=== PATIENT | female | born 1995 | race American Indian/Alaskan Native ===

== ENCOUNTER 2019-06-04 21:17 | Emergency (ER) | payer SELFPAY ==
--- NOTE | 2019-06-04 21:36 | Emergency Department Report ---
Blank Doc - Documentation Documentation: This is a 23-year-old female that presents with abdominal pain with n/v. This initial assessment/diagnostic orders/clinical plan/treatment(s) is/are subject to change based on patient's health status, clinical progression and re- assessment by fellow clinical providers in the ED. Further treatment and workup at subsequent clinical providers discretion. Patient/guardians urged not to elope from the ED as their condition may be serious if not clinically assessed and managed. Initial orders include: 1- Patient sent to [facility] for further evaluation and treatment 2- labs 3- UA
[2019-06-04 21:43] VITALS: BP 117/71
[2019-06-04 22:00] LABS: Basophils % (Auto) 0.4 % (0.0-1.8); Eosinophils # (Auto) 0.1 K/mm3 (0.0-0.4); Eosinophils % (Auto) 1.4 % (0.0-4.3); Hematocrit 36.3 % (30.3-42.9); Hemoglobin 12.5 gm/dl (10.1-14.3); Lymphocytes # (Auto) 1.9 K/mm3 (1.2-5.4); Lymphocytes % (Auto) 44.8 % (13.4-35.0); Mean Corpuscular HGB Conc 34 % (30-34); Mean Corpuscular Volume 88 fl (79-97); Monocytes # (Auto) 0.3 K/mm3 (0.0-0.8); Monocytes % (Auto) 6.4 % (0.0-7.3); Platelet Count 162 K/mm3 (140-440); Red Blood Count 4.13 M/mm3 (3.65-5.03); Red Cell Distribution Width 13.4 % (13.2-15.2)
[2019-06-04 22:21] LABS: Alanine Aminotransferase 21 units/L (7-56); Albumin 4.5 g/dL (3.9-5); BUN/Creatinine Ratio 16; Blood Urea Nitrogen 11 mg/dL (7-17); Calcium 9.3 mg/dL (8.4-10.2); Hemolysis Index 6
[2019-06-04 23:17] LABS: Bacteria,Urine 1+ /HPF (Negative); Mucus,Urine 2+ /HPF
[2019-06-05 00:26] LABS: Bilirubin,Urine NEG (Negative); Blood,Urine NEG (Negative); Color,Urine Yellow (Yellow); Protein,Urine <15 mg/dL mg/dL (Negative); Urobilinogen,Urine < 2.0 mg/dL (<2.0)
[2019-06-05] MEDS ORDERED: TORADOL IV STA (01:00)
[2019-06-05] MEDS ORDERED: REGLAN IV STA (01:00)
[2019-06-05] MEDS ORDERED: NACL 0.9% 1000 ML 1,000 ML IV ONE (01:00)
[2019-06-05] MEDS ORDERED: BENADRYL IV STA (01:00)
--- NOTE | 2019-06-05 01:13 | Emergency Department Report ---
ED Headache HPI - General Chief Complaint: Abdominal Pain Stated Complaint: ABDOMINAL PAIN MIGRAINE Time Seen by Provider: 06/04/19 21:35 Source: patient - History of Present Illness Timing/Duration: 1 week, waxing and waning Quality: moderate Head Injury Location: frontal, parietal Recent Head Trauma: occasional headaches Modifying Factors: improves with: movement Associated Symptoms: denies symptoms. denies: facial pain, fever/chills, nasal drainage, numbness in legs/feet, sinus infection, stiff neck, vision changes Allergies/Adverse Reactions: Allergies No Known Allergies Allergy (Unverified 06/04/19 21:25) Home Medications: Ambulatory Orders Butalb/Acetaminophen/Caffeine [Fioricet 50-300-40 mg CAP] 1 cap PO Q6HR PRN #20 cap 06/05/19 ED Review of Systems ROS: Stated complaint: ABDOMINAL PAIN MIGRAINE Other details as noted in HPI Comment: All other systems reviewed and negative ED Past Medical Hx - Past Medical History Previous Medical History?: Yes Additional medical history: headaches - Surgical History Past Surgical History?: Yes Additional Surgical History: - Social History Smoking Status: Current Some Day Smoker Substance Use Type: None - Medications Home Medications: Home Medications Medication Instructions Recorded Confirmed Last Taken Type Butalb/Acetaminophen/Caffeine 1 cap PO Q6HR PRN #20 cap 06/05/19 Unknown Rx [Fioricet 50-300-40 mg CAP] ED Physical Exam - General Limitations: No Limitations General appearance: alert, in no apparent distress - Head Head exam: Present: atraumatic, normocephalic, normal inspection - Eye Eye exam: Present: normal appearance, PERRL, EOMI Pupils: Present: normal accommodation, other (negative funduscopic examination.) - ENT ENT exam: Present: mucous membranes moist - Neck Neck exam: Present: normal inspection, full ROM. Absent: tenderness, meningismus - Respiratory Respiratory exam: Present: normal lung sounds bilaterally. Absent: respiratory distress, rales, rhonchi, chest wall tenderness, decreased breath sounds - Cardiovascular Cardiovascular Exam: Present: regular rate, normal rhythm. Absent: systolic murmur, diastolic murmur, rubs, gallop - GI/Abdominal GI/Abdominal exam: Present: soft, normal bowel sounds - Extremities Exam Extremities exam: Present: normal inspection, full ROM - Back Exam Back exam: Present: normal inspection - Neurological Exam Neurological exam: Present: alert, oriented X3, CN II-XII intact, normal gait - Psychiatric Psychiatric exam: Present: normal affect, normal mood - Skin Skin exam: Present: warm, dry, intact, normal color. Absent: rash ED Course Vital Signs 06/04/19 21:35 Temperature 98.4 F Pulse Rate 83 Respiratory 18 Rate Blood Pressure 117/71 O2 Sat by Pulse 100 Oximetry ED Medical Decision Making - Lab Data Result diagrams: 06/04/19 21:42 06/04/19 21:42 - Medical Decision Making 24-year-old female with chronic headaches suggestive of a migraine pattern but has yet to be evaluated by neurology. There is no scotomata or neurological symptoms no fevers are normal no weight loss. Headache responsive to the migraine cocktail patient. We'll discharge her home Fioricet and follow management.. They stated her abdominal pain has resolved and she no longer wishes to have it evaluated. Some laboratory data was obtained showed a normal white blood cell count normal liver enzymes normal creatinine and GFR normal electrolytes. test was also negative for evidence of any urinary tract infection. Lipase also negative - Differential Diagnosis migraine headache, musculoskeletal pain, vascular headache, hormonal headac Critical care attestation.: If time is entered above; I have spent that time in minutes in the direct care of this critically ill patient, excluding procedure time. ED Disposition Clinical Impression: Cephalgia, Resolved abdominal pain Disposition: - TO HOME OR SELFCARE Is pt being admited?: No Does the pt Need Aspirin: No Condition: Stable Instructions: Abdominal Pain (ED), Acute Headache (ED) Prescriptions: Butalb/Acetaminophen/Caffeine [Fioricet 50-300-40 mg CAP] 1 cap PO Q6HR PRN #20 cap PRN Reason: headache Referrals: LAXMI DAVID MD [Primary Care Provider] - 3-5 Days
[2019-06-05] MEDS ORDERED: REGLAN ONE (01:41)
[2019-06-05] MEDS ORDERED: NACL 0.9% 1000 ML 1,000 ML ONE (01:42)
[2019-06-05] MEDS ORDERED: TORADOL ONE (01:42)
[2019-06-05] MEDS ORDERED: BENADRYL ONE (01:42)
== END 2019-06-05 02:30 | disposition home or self-care (01) ==
LOC: ED 21:17
DX: G43.709 Chronic migraine without aura, not intractable, without status migrainosus (principal); F17.200 Nicotine dependence, unspecified, uncomplicated
CPT/HCPCS: 36415; 80053; 81001; 83690; 84703; 85025; 96374; 96375; 99283; J1200; J1885; J2765; J7030